=== PATIENT | male | born 1990 | race Hispanic/Latino ===

== ENCOUNTER 2016-10-08 11:41 | Day surgery (SDC) | payer OTHER ==
[~2016-10-08] VITALS: Ht 175.3 cm; Wt 86.6 kg
[2016-10-08] VITALS (8 sets, daily range): BP systolic 114–134; BP diastolic 65–78; PULSE 66–82; RESP 12–20; O2SAT 96–99
[~2016-10-08 11:41] MED LIST: Lactated Ringer's 1,000 ML IV ONE
[2016-10-08] MEDS ORDERED: Lidocaine PF 1% 30 mL Inj ONE (11:42)
[2016-10-08] MEDS ORDERED: Propofol 10,000 mCg/mL 20 mL Inj ONE (11:42)
[2016-10-08] MEDS ORDERED: HYDROmorphone 1 mg/mL Inj ONE (11:42)
[2016-10-08] MEDS ORDERED: Ondansetron 2 mg/mL 2 mL Inj ONE (11:42)
[2016-10-08] MEDS ORDERED: MetoCLOpramide 5 mg/mL 2 mL Inj ONE (11:42)
[2016-10-08] MEDS ORDERED: Dexamethasone 4 mg/mL Inj ONE (11:42)
[2016-10-08] MEDS ORDERED: Lactated Ringer's 1,000 ML IV ONE (12:45)
--- NOTE | 2016-10-08 13:43 | PCM.HPANE ---
Patient Data Date of Service: Oct 08, 2016 Surgeon Admitting Provider: Attending Provider:Nayan Agrawal MD Primary Care Physician:Cesar Other Provider:Sabrina Glaser Anesthesia Reason for Visit Left Small Finger Laceration Ht/WT & BMI Height (Feet): 5 Height (Inches): 9 Weight (Kilograms): 86.6 Body Mass Index 28.00 Allergies Coded Allergies: No Known Allergies (Unverified , 10/07/16) Past Anesthesia History Anesthesia History: Denies:: Abnormal Airway, Anesthesia Reactions, Difficult Intubation, Fam Anesthesia Reaction, Fam Malignant Hypertherm, Malignant Hyperthermia Diabetes History Hx Diabetes?: No MRSA MRSA: No Medications Hypertension Medication: No Home Meds Incl Beta Kizzy: No No Active Prescriptions or Reported Meds History History of ENT Problems?: No HEENT History: Denies:: Abnormal Airway Cataracts Difficult Intubation Dysphagia Glaucoma Hearing Problem Sinus Problem TMJ Denture Type: None Teeth Condition: Within Normal Limits Hx of Heart Problems?: No Cardiovascular History: Denies:: Chest Pain Hx of Respiratory Problem?: No Respiratory History: Denies:: Use of C-PAP Machine Hx Neurologic Problems?: No Neurological History: Denies:: Alzheimer's Disease CVA Dementia Parkinson's Disease Seizures TIA Other Neurological Pertinent: NUMBNESS TO NOSE Hx of GI Problems?: No Hx of Problems?: No Male Hx: Denies:: Prostate Problems Scrotal Mass Testicular Surgery Skin History: Denies:: History Skin Disorders? Pressure Ulcers Hx Musculoskeletal Problems?: Yes Musculoskeletal History: Positive for:: Musculoskeletal Trauma (Lt. Small finger) Denies:: Back Injury Degenerative Joint Fibromyalgia Joint Replacement Myasthenia Gravis Osteoarthritis Rheumatoid Arthritis Hx of Psycho/Social Problems?: No Hx Surgeries?: Yes (Facial reconstruction jun 2015) Other History: Positive for:: Hospitalization (June 2015 [facility]) Denies:: Cancer Endocrine Disease Thyroid Disease History Blood Transfusions: Positive for:: Accept Blood Products? Denies:: Blood Transfusions Hx Diabetes: No Hx Alcohol Use: YesAlcoholic Drinks Per Day: 3 occassionallyHx Substance Use: No Smoking Status: Never Smoker Stop/Bang Treated for Sleep Apnea?: No Do You Have a CPAP Machine?: No S-Snoring: Do You Snore Loudly: Yes T-Tired: feel tired, fatigued: No O-Obsered: Observed not breath: No P-Blood Pressure: treated: No B- Body Mass Index > 35 kg/m2: No A- Age over 50: No N- Neck Large Circumference: No G- Gender Male: Yes LENARD Total Score: 2 LENARD Risk Assessment: Low Risk, <3 Yes Risk Assessment Category Category 1A: Patient has history of documented sleep apnea, and HAS NOT received any narcotic, sedative or anesthesia administration during this stay. Category 1B: Patient has history of documented sleep apnea, and HAS received any narcotic , sedative or anesthesia administration during this stay Category 2: Patient has SUSPECTED Obstructive Sleep Apnea, and HAS received any narcotic , sedative or anesthesia administration during this stay. Category 3: Patient has SUSPECTED Obstructive Sleep Apnea and HAS NOT received narcotic, sedative or anesthesia administration during this stay. Category 4: Outpatient in Procedural Areas with known sleep apnea or who screen positive for High Risk via the STOP/BANG questionnaire. Exam Exam Vital Signs Vital Signs Date Time Temp Pulse Resp B/P Pulse Ox O2 Delivery O2 Flow Rate FiO2 10/08/16 12:13 36.4 66 16 124/70 99 Room Air General Appearance: Alert, Oriented X3, Cooperative, No Acute Distress HEENT/AIRWAY: MP 2, Neck Movement (FROM), Mouth Opening (>3), Other (tmd>3) Lungs: Normal Air Movement Heart: Exam Unremarkable, Regular Rate/Rhythm, Normal S1, Normal S2, No Murmurs /Rubs/Gallops Meds/Labs/Diagnostics Admission Meds Current Medications Lactated Ringer's (Lr) 1,000 ml @ ud STK-MED ONCE IV Last administered on t 12:45; Start 10/08/16 at 12:45; Stop 10/08/16 at 12:50; Status DC Plan Impression Patient chart reviewed, patient interviewed and anesthestic plan with risks, benefits, and alternatives discussed, and informed consent obtained. NPO per Anesth. Guidelines: No ASA Physical Status: ASA1 Normal Healthy Anesthetic Plan: GA Bene/Risks/Altern/Consents: Yes HP Complete Prior to Induction: Yes Sergey Martinez MD Oct 08, 2016 13:43
[2016-10-08] MEDS ORDERED: Lactated Ringer's 1,000 ML IV SCH (14:38)
[2016-10-08] MEDS ORDERED: Lactated Ringer's 500 ML IV PRN (14:38)
[2016-10-08] MEDS ORDERED: EPHEDrine Sulfate 50 mg/mL Inj IVPUSH PRN (14:40)
[2016-10-08] MEDS ORDERED: Ondansetron 2 mg/mL 2 mL Inj IVPUSH PRN (14:40)
[2016-10-08] MEDS ORDERED: Dexamethasone 4 mg/mL Inj IVPUSH PRN (14:40)
[2016-10-08] MEDS ORDERED: Phenylephrine 10,000 mCg/mL Inj IVPUSH PRN (14:40)
[2016-10-08] MEDS ORDERED: fentaNYL-PF 50 mCg/mL 2 mL Inj IVPUSH PRN (14:40)
[2016-10-08] MEDS ORDERED: HYDROmorphone 1 mg/mL Inj IVPUSH PRN (14:40)
[2016-10-08] MEDS ORDERED: MetoCLOpramide 5 mg/mL 2 mL Inj IVPUSH PRN (14:40)
[2016-10-08] MEDS ORDERED: Bupivacaine-MPF 0.25% 30 mL Inj INFILTRATE ONE (14:41)
[2016-10-08] MEDS ORDERED: HYDROcodone-APAP 5-325 mg Tablet PO PRN (15:55)
--- NOTE | 2016-10-08 17:24 | PCM.ANEP1 ---
Post Anesthesia PACU Phase 1 Assessment Date of Service: Oct 08, 2016 Vital Signs Vital Signs Date Time Temp Pulse Resp B/P Pulse Ox O2 Delivery O2 Flow Rate FiO2 10/08/16 17:00 66 16 114/65 98 Room Air 10/08/16 16:20 36.6 77 20 134/75 97 Room Air 10/08/16 16:15 36.7 79 18 120/73 96 Room Air 10/08/16 16:10 74 18 120/78 98 Room Air 10/08/16 16:05 73 17 126/66 97 Room Air 10/08/16 16:00 82 17 125/67 98 Simple Mask 6 10/08/16 15:55 36.4 78 12 127/66 98 Simple Mask 6 10/08/16 12:13 36.4 66 16 124/70 99 Room Air Anesthetic Administered: GA Level of Alertness: Awake, talking GERARD's with Equal Strength: Yes Pain: No Pain Scale Score: 0 Nausea or Vomiting: No CV Function & Hydration Stable: Yes Airway Device: none Oxygen Delivery: Simple Mask Lungs: Normal Air Movement Summary 10/08/16 16:20 36.6 77 20 134/75 97 Room Air PACU Phase 2 Assessment Complications: No Follow up Care: N/A Patient Instructions Provided: N/A Sergey Martinez MD Oct 08, 2016 17:24
--- NOTE | 2016-10-11 10:45 | OP ---
[address] [address] OPERATIVE REPORT PATIENT: BIANCA SANTO : 1990 MR#: [id number] ADMIT: 10/08/2016 JOB ID: [id number] DATE OF SURGERY: 10/08/2016 PREOPERATIVE DIAGNOSIS(ES): Left small finger laceration with possible tendon and nerve injury. POSTOPERATIVE DIAGNOSIS(ES): 1. Left small finger laceration. 2. Left zone one flexor digitorum profundus laceration. 3. Left small finger radial digital nerve laceration. PROCEDURE: 1. Exploration of left small finger penetrating trauma with extension off the laceration and subsequent closure of the incisions and lacerations. 2. Left small finger zone one flexor digitorum profundus repair. 3. Left small finger radial digital nerve repair. SURGEON: Nayan Agrawal MD MEDICAL DOCTOR: None. ANESTHESIA: General anesthesia. ESTIMATED BLOOD LOSS: Minimal. COMPLICATIONS: None apparent. GRAFTS: None. DRAINS: None. INDICATIONS FOR PROCEDURE: This is a 25-year-old male patient who sustained a left small finger laceration on September 24, 2016. The patient was referred to another institution, but was not treated in a timely manner. Patient presented to my office. I suspected tendon laceration and nerve laceration. At this point, urgent repair of the lacerated tendon and nerves are indicated. PROCEDURE AND FINDINGS: The patient was identified in the preoperative area. Surgical site was marked. The patient was then taken back to the operating room and placed supine on the operating table. Appropriate time-outs were taken. General anesthesia was induced smoothly. The patient was then prepped and draped in usual sterile manner. The left upper extremity was then exsanguinated and tourniquet inflated to 250 mmHg. It was noted the patient has oblique laceration starting on the ulnar radial aspect near the distal interphalangeal crease extending proximally and radially to the radial mid axis line. A Zbigniew incision extension was then designed that extends into the proximal phalanx. The patient's previous laceration was then opened with a pair of tenotomy scissors. I then incised through the Zbigniew side incision down to the proximal phalanx. Incision was made with a #15 blade. I then performed blunt and sharp dissection with a pair of tenotomy scissors to allow me to elevate the skin flap ulnarly. The skin flap was sutured in place. It was noted that patient has a complete transection of the flexor digitorum profundus tendon near the DIP crease. The tendon has retracted to just proximal to the A4 girish. I then extended the patient's laceration distally again in a Burner's manner back to the middle of the distal phalanx. Incision was made with a #15 blade. Dissection was carried down to the underlying flexor apparatus. The flap was retracted radially and sutured in place. This allowed me to expose the distal stump. Once this has been done, the A4 girish was dilated gently with a hemostat. This allowed me to pass the FDP proximal stump into the A4 girish into the side of the laceration. Once this had been done, the flexor digitorum profundus tendon was pinned in place with a 22-gauge needle. This brought the proximal distal end into close proximity. A 5-0 Prolene simple interrupted suture was then placed to reapproximate the dorsal surface of the tendon repair. Once this had been done, 4-0 Supramid loop sutures were then used to reapproximate the tendons in a modified Ames sleeve. A six strand repair was completed. Once that had been done, I then continued the 5-0 Prolene suture in a running cross weave across the anterior or the palmar surface of the repair. Once this had been done, the tendon repair was found to be quite secure. I then turned my attention to the radial digital nerve which was lacerated. To be specific two branches of the radial digital nerve was lacerated as well the dorsal branch was intact. The proximal stump and the distal stump were identified. At this point, I switched over to a five times magnification loops. The nerve stumps were then trimmed and isolated from surrounding soft tissue. Once this had been done, the nerve was coapted with three 8-0 nylon simple interrupted sutures in epineurial repair. At this point, tourniquet was released and hemostasis was obtained with bipolar electrocautery. The incision was then reapproximated with several 4-0 nylon horizontal mattress sutures. The patient was then placed into a well-padded dorsal blocking splint keeping the wrist, MCP and PIP in a flexed position. The patient tolerated the procedure well. Needle count, sponge count, instrument counts were correct at the end of the procedure. The patient was extubated and transported to recovery in stable condition.
== END 2016-10-08 23:59 | disposition home or self-care (01) ==
LOC: SAS 11:41
PROVIDERS: ATTEND Plastic Surgery
DX: S61.217A Laceration without foreign body of left little finger without damage to nail, initial encounter (principal); S66.127A Laceration of flexor muscle, fascia and tendon of left little finger at wrist and hand level, initial encounter; S64.497A Injury of digital nerve of left little finger, initial encounter; W26.0XXA Contact with knife, initial encounter; Y93.89 Activity, other specified; Y92.89 Other specified places as the place of occurrence of the external cause; Y99.0 Civilian activity done for income or pay